=== PATIENT | female | born 1975 | race Caucasian/White ===

== ENCOUNTER 2018-11-13 08:00 | Inpatient (IN) ==
[2018-11-13] MEDS ORDERED: Naloxone 0.4 MG/ML INJ IVP PRN (09:16)
[2018-11-13] MEDS ORDERED: Ondansetron 4 MG/2 ML VIAL IVP PRN (09:16)
[2018-11-13] MEDS ORDERED: *HR* Nalbuphine 10 MG/ML AMPUL IVP PRN (09:16)
[2018-11-13] MEDS ORDERED: Metoclopramide 10 MG/2 ML VIAL IVP PRN (09:16)
[2018-11-13] MEDS ORDERED: Famotidine 20 MG/2 ML VIAL IVP PRN (09:16)
[2018-11-13] MEDS ORDERED: miSOPROStoL 25 MCG TABLET VG ONE (09:17)
[2018-11-13] MEDS ORDERED: Ringers Solution, Lactated 1,000 ML IVC SCH (09:30)
[2018-11-13 10:55] LABS: Basophils % 0.5 %; Eosinophils % 0.5 %; Hematocrit 33.9 % (35.3-44.9); Hemoglobin 11.3 g/dL (11.5-15.4); Immature Granulocytes % 0.5 % (0-4); Lymphocytes # 1.2 K/mcL (0.6-4.6); Lymphocytes % 19.6 %; Mean Corpuscular HGB Conc 33.3 g/dL (31.6-35.5); Mean Corpuscular Hemoglobin 32.3 pg (28.0-33.3); Mean Corpuscular Volume 96.9 fL (83.0-100.0); Mean Platelet Volume 9.6 fL (9.4-12.4); Monocytes # 0.5 K/mcL (0.0-1.3); Neutrophils # 4.2 K/mcL (1.6-8.9); Platelet Count 257 K/mcL (140-400); Red Cell Distribution Width 13.1 % (11.5-14.5); Segmented Neutrophils % 70.9 %; White Blood Count 5.9 K/mcL (4.3-11.1)
[2018-11-13 11:03] LABS: Amphetamine Screen,Urine Negative ng/mL (Cutoff=1000); Barbiturate Screen,Urine Negative ng/mL (Cutoff=200); Benzodiazepines Screen,Urine Negative ng/mL (Cutoff=200); Cannabinoid Screen,Urine Negative ng/mL (Cutoff = 50); Cocaine Screen,Urine Negative ng/mL (Cutoff= 300); Creatinine,Urine 45 mg/dL; Opiate Screen,Urine Negative ng/mL (Cutoff=300); Phencyclidine Screen,Urine Negative ng/mL (Cutoff=25); Protein/Creatinine Ratio,Urine 0.22 mg/mg (0.00-0.20)
[2018-11-13 11:13] LABS: Alanine Aminotransferase 16 Units/L (7-52); Aspartate Amino Transferase 26 Units/L (13-39); BUN/Creatinine Ratio 9 (6-26); Blood Urea Nitrogen 5 mg/dL (6-20); Lactate Dehydrogenase 179 Units/L (140-271); Uric Acid 4.1 mg/dL (2.3-7.6); eGFR For African Americans > 60 (> 60); eGFR For Non-African Americans > 60 (> 60)
[2018-11-13] MEDS ORDERED: miSOPROStoL 25 MCG TABLET VG SCH (12:00)
[2018-11-13] MEDS ORDERED: Oxytocin 20 units/ LR 1000 mL 20 UNIT/1,000 ML BAG IVC SCH ×2 (13:15→21:41)
[2018-11-13] MEDS ORDERED: *HR* FentaNYL (PF) 100 MCG/2 ML VIAL EP ONE (13:50)
[2018-11-13] MEDS ORDERED: Epidural Premix (fent/bupiv) 110 ML EP SCH (14:00)
[2018-11-13] MEDS ORDERED: D5% in Lactated Ringers 1,000 ML IVC ONE (14:58)
[2018-11-13] MEDS ORDERED: D5% in Lactated Ringers 1,000 ML IVC SCH (15:15)
[2018-11-13] MEDS ORDERED: *HR* FentaNYL (PF) 100 MCG/2 ML VIAL ONE (15:58)
[2018-11-13] MEDS ORDERED: *HR* Oxytocin 10 UNIT/ML VIAL IM ONE (16:22)
[2018-11-13] MEDS ORDERED: Chloroprocaine/PF 20 ML VIAL INFILT ONE (16:22)
[2018-11-13] MEDS ORDERED: Rho Immune Globulin 1,500 UNIT SYRINGE IM PRN (21:41)
[2018-11-13] MEDS ORDERED: Measles/Mumps/Rubella Vacc 0.5 ML VIAL SQ PRN (21:41)
[2018-11-13] MEDS ORDERED: Lanolin 7 G OINT...G. TP PRN (21:41)
[2018-11-13] MEDS ORDERED: Benzocaine/Menthol 56 GM AEROSOL SPRAY TP PRN (21:41)
[2018-11-14] MEDS: Ibuprofen 600 MG TABLET PO PRN ×3 (01:43→13:48)
[2018-11-14] MEDS: Acetaminophen 325 MG TABLET PO PRN ×3 (05:42→16:36)
[2018-11-14] MEDS ORDERED: Prenatal Vit/FA 1 EACH TABLET PO SCH (09:00)
[2018-11-14 15:47] VITALS: BP 128/85
[2018-11-14] MEDS ORDERED: Acetaminophen 325 MG TABLET PO PRN (16:47)
== END 2018-11-14 20:14 | disposition home or self-care (01) | DRG 807 ==
LOC: 1NENULAB 08:14 → 1NENUOBS 21:35
PROVIDERS: ADMIT Registered Nurse; ATTEND Registered Nurse